=== PATIENT | female | born 1960 | race Caucasian/White ===

== ENCOUNTER 2019-04-26 10:02 | Day surgery (SDC) | payer OTHER ==
[2019-04-25 16:12] VITALS: BMI 28.9
[2019-04-26 12:37] VITALS: TEMP 97.9
[2019-04-26 13:31] VITALS: BP 133/78; PULSE 68
--- NOTE | 2019-04-29 17:15 | PATH ---
Surgical Pathology Report Patient Name: JUDI MOORE [facility]. Rec. #: [id number] /Age/Gender: 1960 (Age: 58) / F Account: [id number] Location: U-ENDOSCOPY Taken: 04/26/2019 Received: 04/26/2019 Reported: 04/29/2019 Physicians: Amy Gayle M.D. Specimen(s) Received A: 2ND PORTION DUODENUM AND BULB B: BX ANTRUM C: RECTAL POLYP Clinical History Occult GI, rule out ulcer, colon cancer screening Postoperative diagnosis: Atrophic gastritis, hiatal hernia, colon polyp Final Diagnosis A. SECOND PORTION OF DUODENUM AND BULB, BIOPSY: DUODENUM MUCOSA WITH MILD NONSPECIFIC CHRONIC DUODENITIS. NO HISTOLOGIC EVIDENCE OF CELIAC DISEASE. B. ANTRUM, BIOPSY: GASTRIC MUCOSA WITH MILD CHRONIC GASTRITIS. IMMUNOSTAIN FOR H. PYLORI IS NEGATIVE. NEGATIVE FOR INTESTINAL METAPLASIA. C. RECTAL POLYP, POLYPECTOMY: TUBULAR ADENOMA. Electronically Signed Ivy Cano M.D. Gross Description A. Received in formalin, labeled "biopsy second portion of duodenum and duodenal bulb" are 3 mcclure, irregular portions of soft tissue ranging from 0.3-0.4 cm. in greatest dimension. The specimens are submitted in toto in one cassette. B. Received in formalin, labeled "biopsy antrum" are 5 mcclure, irregular portions of soft tissue ranging from 0.2-0.6 cm. in greatest dimension. The specimens are submitted in toto in one cassette. C. Received in formalin, labeled "polyp rectum" is a mcclure, irregular portion of soft tissue measuring 0.5 cm. in greatest dimension. The specimen is submitted in toto in one cassette. /04/26/2019 [facility]04/26/2019
== END 2019-04-26 13:35 | disposition home or self-care (01) ==
LOC: JASU-ENDO 10:02
PROVIDERS: ATTEND Internal Medicine Gastroenterology
PROC: 0DB68ZX Excision of Stomach, Via Natural or Artificial Opening Endoscopic, Diagnostic (ICD-10-PCS; 2019-04-26)
PROC: 0DBP8ZX Excision of Rectum, Via Natural or Artificial Opening Endoscopic, Diagnostic (ICD-10-PCS; principal; 2019-04-26 11:00)
DX: Z12.11 Encounter for screening for malignant neoplasm of colon (principal); K62.1 Rectal polyp; K64.8 Other hemorrhoids; K92.1 Melena; K29.50 Unspecified chronic gastritis without bleeding; K44.9 Diaphragmatic hernia without obstruction or gangrene; K29.80 Duodenitis without bleeding
CPT/HCPCS: 88305-TC; 88342-TC

== ENCOUNTER 2023-02-13 15:07 | Day surgery (SDC) | payer OTHER ==
[2023-02-13] MEDS ORDERED: HYDROCORTISONE SOD SUCCINATE 100 MG/2 ML VIAL IVPB PRN (15:30)
[2023-02-13] MEDS ORDERED: IRON SUCROSE INJECTION 200 MG in SODIUM CHLORIDE 100 ML IVPB ONE (15:30)
[2023-02-13] MEDS ORDERED: diphenhydrAMINE HCL 50 MG CAPSULE PO PRN (15:30)
[2023-02-13 15:56] VITALS: BP 134/73; PULSE 88; RESP 18; TEMP 98.4
== END 2023-02-13 16:15 | disposition home or self-care (01) ==
LOC: FINFUSION 15:07 → FM/S 15:08 → FINFUSION 16:15
PROVIDERS: ATTEND Family Medicine
PROC: 3E033GC Introduction of Other Therapeutic Substance into Peripheral Vein, Percutaneous Approach (ICD-10-PCS; principal; 2023-02-13)
DX: D50.9 Iron deficiency anemia, unspecified (principal)
CPT/HCPCS: 96365; J1756

== ENCOUNTER 2023-02-20 14:47 | Day surgery (SDC) | payer OTHER ==
[2023-02-20] MEDS ORDERED: IRON SUCROSE INJECTION 200 MG in SODIUM CHLORIDE 100 ML IVPB ONE (15:00)
[2023-02-20 15:36] VITALS: RESP 18; TEMP 98
[2023-02-20 16:49] VITALS: BP 122/80; PULSE 87
== END 2023-02-20 16:50 | disposition home or self-care (01) ==
LOC: FINFUSION 14:47 → FM/S 14:51 → FINFUSION 16:50
PROVIDERS: ATTEND Family Medicine
PROC: 3E033GC Introduction of Other Therapeutic Substance into Peripheral Vein, Percutaneous Approach (ICD-10-PCS; principal; 2023-02-20)
DX: D50.9 Iron deficiency anemia, unspecified (principal)
CPT/HCPCS: 96365; J1756

== ENCOUNTER 2023-02-27 15:00 | Day surgery (SDC) | payer OTHER ==
[2023-02-27] MEDS ORDERED: IRON SUCROSE INJECTION 200 MG in SODIUM CHLORIDE 100 ML IVPB ONE (16:00)
[2023-02-27 16:06] VITALS: RESP 18; TEMP 98
[2023-02-27 16:54] VITALS: BP 115/60; PULSE 76
== END 2023-02-27 16:54 | disposition home or self-care (01) ==
LOC: FINFUSION 15:00 → FM/S 15:01 → FINFUSION 16:54
PROVIDERS: ATTEND Family Medicine
PROC: 3E033GC Introduction of Other Therapeutic Substance into Peripheral Vein, Percutaneous Approach (ICD-10-PCS; principal; 2023-02-27)
DX: D50.9 Iron deficiency anemia, unspecified (principal)
CPT/HCPCS: 96365; J1756

== ENCOUNTER 2024-01-15 04:15 | Day surgery (SDC) | payer OTHER ==
[2024-01-11 10:18] VITALS: BMI 26.8
[2024-01-15 07:23] VITALS: RESP 18
[2024-01-15 09:04] VITALS: TEMP 97.5
[2024-01-15 09:46] VITALS: BP 125/66
[2024-01-15 09:52] VITALS: PULSE 69
== END 2024-01-15 09:38 | disposition home or self-care (01) ==
LOC: JASU-ENDO 04:15
PROVIDERS: ATTEND Internal Medicine Gastroenterology
PROC: 0DB98ZX Excision of Duodenum, Via Natural or Artificial Opening Endoscopic, Diagnostic (ICD-10-PCS; 2024-01-15)
PROC: 0DB78ZX Excision of Stomach, Pylorus, Via Natural or Artificial Opening Endoscopic, Diagnostic (ICD-10-PCS; 2024-01-15)
PROC: 0DB68ZX Excision of Stomach, Via Natural or Artificial Opening Endoscopic, Diagnostic (ICD-10-PCS; 2024-01-15)
PROC: 0DB48ZX Excision of Esophagogastric Junction, Via Natural or Artificial Opening Endoscopic, Diagnostic (ICD-10-PCS; 2024-01-15)
PROC: 0DJD8ZZ Inspection of Lower Intestinal Tract, Via Natural or Artificial Opening Endoscopic (ICD-10-PCS; principal; 2024-01-15 08:00)
DX: Z12.11 Encounter for screening for malignant neoplasm of colon (principal); K64.8 Other hemorrhoids; Z86.010 Personal history of colon polyps; K29.50 Unspecified chronic gastritis without bleeding; K31.7 Polyp of stomach and duodenum; K21.00 Gastro-esophageal reflux disease with esophagitis, without bleeding; K44.9 Diaphragmatic hernia without obstruction or gangrene; D50.9 Iron deficiency anemia, unspecified
CPT/HCPCS: 88305-TC; 88341-TC; 88342-TC